=== PATIENT | male | born 2000 | race Hispanic/Latino ===

== ENCOUNTER → 2019-02-08 | Day surgery (SDC) | payer BC ==
[~2019-02-08] MED LIST: DEXILANT60 MG PO; FENTANYL CITRATE/PF 100MCG/2 ML INJ ONE; HYDROXYZINE HCL25 MG PO; HYOSCYAMINE 0.125 MG TAB ONE; KLONOPIN1 MG PO; LIDOCAINE HCL 2% LOCAL INJ 5 ML SDV VIAL INJ ONE; MIDAZOLAM HCL 2 MG/2 ML VIAL ONE; MIRTAZAPINE15 MG PO; PROPOFOL IV EMULSION 10 MG/ML 20 ML VIAL ONE; TERBINAFINE HC250 MG PO; ZOFRAN8 MG PO
--- OUTSIDE RECORDS SUMMARY | 2019-02-08 09:31 | XMS REPORT ---
[facility] Address Unknown Phone Unavailable Care Team Providers Care Senior Game Developer Name Role Phone Unavailable Unavailable Problems This patient has no known problems. Allergies, Adverse Reactions, Alerts This patient has no known allergies or adverse reactions. Medications This patient has no known medications. Encounters Start Date/Time End Date/Time Encounter Type Admission Type Attending [facility] Facility Care Department Encounter ID 2018-06-22 14:53:03 2018-06-22 14:53:03 Outpatient [facility] [id number] 2018-05-27 00:00:00 2018-05-27 00:00:00 Outpatient [facility] [id number] 2018-05-14 00:00:00 2018-05-14 00:00:00 Outpatient [facility] [id number] 2018-05-12 18:27:04 2018-05-12 18:27:04 Outpatient [facility] [id number] 2018-04-13 15:03:46 2018-04-13 15:03:46 Outpatient [facility] [id number] 2018-04-06 09:17:18 2018-04-06 09:17:18 Outpatient [facility] [id number] 2018-03-30 10:20:27 2018-03-30 10:20:27 Outpatient [facility] [id number] 2018-03-17 18:49:38 2018-03-17 18:49:38 Emergency [facility] [id number] 2018-03-09 09:21:28 2018-03-09 09:21:28 Outpatient [facility] [id number] 2018-03-04 15:06:34 2018-03-04 15:06:34 Outpatient [facility] [id number] 2018-03-02 00:00:00 2018-03-02 00:00:00 Outpatient [facility] [id number] 2018-03-01 00:00:00 2018-03-01 00:00:00 Outpatient [facility] [id number] 2018-02-22 00:00:00 2018-02-22 00:00:00 Outpatient [facility] [id number] 2018-02-10 09:09:32 2018-02-10 09:09:32 Outpatient [facility] [id number] 2018-02-10 00:00:00 2018-02-10 00:00:00 Outpatient [facility] [id number] 2018-02-08 00:00:00 2018-02-08 00:00:00 Outpatient [facility] [id number] 2018-02-03 00:00:00 2018-02-03 00:00:00 Outpatient [facility] [id number] 2018-02-02 09:08:43 2018-02-02 09:08:43 Outpatient [facility] [id number] 2018-02-02 08:40:14 2018-02-02 08:40:14 Outpatient [facility] [id number] 2018-02-01 07:17:56 2018-02-01 07:17:56 Outpatient [facility] [id number] 2018-02-01 00:00:00 2018-02-01 00:00:00 Outpatient [facility] [id number] 2018-01-28 11:10:52 2018-01-28 11:10:52 Outpatient [facility] [id number] 2018-01-19 09:53:36 2018-01-19 09:53:36 Outpatient [facility] [id number] 2018-01-19 08:56:24 2018-01-19 08:56:24 Outpatient [facility] [id number] 2018-01-04 00:00:00 2018-01-04 00:00:00 Outpatient [facility] [id number] 2017-11-30 11:40:53 2017-11-30 11:40:53 Outpatient [facility] [id number] 2017-11-25 13:26:20 2017-11-25 13:26:20 Outpatient [facility] [id number] 2017-11-06 00:00:00 2017-11-06 00:00:00 Outpatient [facility] [id number] 2017-10-22 15:03:47 2017-10-22 15:03:47 Outpatient [facility] [id number] 2017-10-22 09:13:54 2017-10-22 09:13:54 Outpatient [facility] [id number] 2017-10-22 00:00:00 2017-10-22 00:00:00 Outpatient [facility] [id number] 2017-10-20 00:00:00 2017-10-20 00:00:00 Outpatient [facility] [id number] 2017-10-14 14:27:06 2017-10-14 14:27:06 Outpatient [facility] [id number] 2017-09-14 10:59:48 2017-09-14 10:59:48 Outpatient [facility] [id number] 2017-09-11 07:15:52 2017-09-11 07:15:52 Outpatient [facility] [id number] 2017-09-04 07:59:08 2017-09-04 07:59:08 Emergency [facility] [id number] 2017-08-26 08:40:50 2017-08-26 08:40:50 Outpatient [facility] [id number] 2017-08-24 00:00:00 2017-08-24 00:00:00 Outpatient [facility] [id number] 2017-08-19 09:00:43 2017-08-19 09:00:43 Emergency [facility] [id number] 2017-08-19 05:32:12 2017-08-19 05:32:12 Emergency [facility] [id number] 2017-08-14 07:47:59 2017-08-14 07:47:59 Emergency [facility] [id number] 2017-08-12 00:00:00 2017-08-12 00:00:00 Outpatient [facility] [id number] 2017-08-10 11:23:57 2017-08-10 11:23:57 Outpatient [facility] [id number] 2017-08-10 11:01:38 2017-08-10 11:01:38 Outpatient [facility] [id number] 2017-08-10 10:04:31 2017-08-10 10:04:31 Outpatient [facility] [id number] 2017-08-04 22:51:58 2017-08-04 22:51:58 Emergency [facility] [id number]
[2019-02-08 13:16] VITALS: BP 123/82
[2019-02-08 13:59] LABS: WBC,FECAL (FECAL LACTOFERRIN) NEGATIVE (NEGATIVE)
--- NOTE | 2019-02-08 14:26 | Operative Report ---
DATE OF PROCEDURE: 02/08/2019 SURGEON: Brian Govea MD PROCEDURE: EGD with esophageal dilatation and biopsies and pyloric channel dilatation per TTS balloon dilators and colonoscopy with biopsies. INDICATIONS FOR EGD: Dysphagia, nausea. INDICATIONS FOR COLONOSCOPY: History of bright red blood per rectum, history of intermittent diarrhea. MEDICATIONS: The patient was done under MAC, please see anesthesiologist's note. PROCEDURE IN DETAIL: With the patient in the left lateral decubitus position, flexible fiberoptic Olympus gastroscope was introduced into the esophagus under direct visualization without any difficulty. There was some patchy erythema noted in distal esophagus. A mild stricture was noted at the GE junction, it was dilated to size 52-Macanese Villegas. The scope was then advanced with ease into the stomach and mucosa overlying the antrum and the body revealed some patchy erythema and [id number] edema and biopsies were obtained and sent to stain for H. pylori. The pylorus was strictured and it was dilated to size 20 mm per TTS balloon dilators. The scope was then advanced with ease to the second portion of the duodenum. Biopsies were obtained from the second portion and duodenal bulb to rule out sprue. The scope was then withdrawn back into the stomach and retroflexed, mucosa overlying the fundus and cardia appeared to be within normal limits. The scope was then straightened out. The scope was subsequently withdrawn. The patient tolerated the procedure well. IMPRESSION: 1. Distal esophagitis, mild. 2. Esophageal stricture at GE junction, dilated to size 52-Macanese Villegas. 3. Gastritis, biopsied, biopsies sent to stain for H. pylori. 4. Pyloric channel stricture dilated to size 20 mm per TTS balloon dilators. 5. Rule out sprue. PLAN: Follow up histology. Continue Dexilant 60 mg one p.o. q.a.m. a.c. Add Carafate 1 g p.o. a.c. t.i.d. and at bedtime. PROCEDURE IN DETAIL: The patient was then turned around after adequate lubrication of the anal canal, a flexible fiberoptic Olympus colonoscope was inserted into the rectum with ease and advanced all the way to the cecum. Mucosa overlying the cecum appeared to be within normal limits. The ileocecal valve was intubated and the scope was advanced into the terminal ileum. Biopsies were obtained. The scope was then withdrawn back into the colon, it was then withdrawn slowly. Mucosa overlying the ascending and the transverse appeared to be within normal limits. Some patchy areas of erythema and low-grade to moderate edema was noted in the left colon as well as in the rectum and random biopsies were obtained. The scope was then retroflexed into the distal rectum. Small internal hemorrhoids were noted, none of which was actively bleeding. The scope was then straightened out, it was subsequently withdrawn after securing an adequate stool specimen, that was sent for the appropriate stool studies. The patient tolerated the procedure well. IMPRESSION: 1. Mild patchy left-sided colitis. 2. Proctitis, mild. 3. Internal hemorrhoids, none actively bleeding. PLAN: 1. Follow up histology. 2. Follow up stool studies. 3. Initiate Bentyl 10 mg one p.o. t.i.d. Brian Govea MD [facility] [place] /[id number] cc: Marcello Lopez DO
[2019-02-09 14:34] LABS: C DIFFICILE TOXIN A&B AMP PROB NEGATIVE (NEGATIVE)
== END | disposition home or self-care (01) ==
LOC: OR 09:17
PROVIDERS: ATTEND Internal Medicine Gastroenterology
DX: K29.50 Unspecified chronic gastritis without bleeding (principal); K31.1 Adult hypertrophic pyloric stenosis; R13.10 Dysphagia, unspecified; R11.0 Nausea; R19.7 Diarrhea, unspecified; K92.1 Melena; K51.50 Left sided colitis without complications; K62.89 Other specified diseases of anus and rectum; K64.8 Other hemorrhoids; K59.09 Other constipation; R03.0 Elevated blood-pressure reading, without diagnosis of hypertension; Z88.0 Allergy status to penicillin
CPT/HCPCS: 43233; 43239; 43245; 43450; 45380; 83630; 83993; 87045; 87177; 87328; 87493; J2001; J2250; J3010

== ENCOUNTER → 2021-12-26 | Day surgery (SDC) | payer BC ==
[~2021-12-26] MED LIST changes: +CARAFATE1 GM PO; -HYOSCYAMINE 0.125 MG TAB ONE; -LIDOCAINE HCL 2% LOCAL INJ 5 ML SDV VIAL INJ ONE
[2021-12-26 11:36] VITALS: BP 122/84
== END | disposition home or self-care (01) ==
LOC: OR 08:31
PROVIDERS: ATTEND Internal Medicine Gastroenterology
DX: K29.50 Unspecified chronic gastritis without bleeding (principal); K31.7 Polyp of stomach and duodenum; K20.90 Esophagitis, unspecified without bleeding; K21.9 Gastro-esophageal reflux disease without esophagitis; R19.7 Diarrhea, unspecified; F41.9 Anxiety disorder, unspecified; F32.A Depression, unspecified; Z88.0 Allergy status to penicillin; Z01.812 Encounter for preprocedural laboratory examination; Z20.822 Contact with and (suspected) exposure to COVID-19; Z79.899 Other long term (current) drug therapy; Z68.31 Body mass index [BMI] 31.0-31.9, adult
CPT/HCPCS: 43239; C9113; J2250; J2704; J3010; U0002

== ENCOUNTER → 2022-02-20 | Outpatient (CLI) | payer BC ==
[~2022-02-20] MED LIST changes: -FENTANYL CITRATE/PF 100MCG/2 ML INJ ONE; -MIDAZOLAM HCL 2 MG/2 ML VIAL ONE; -PROPOFOL IV EMULSION 10 MG/ML 20 ML VIAL ONE
== END ==
LOC: US 07:33
PROVIDERS: ATTEND Internal Medicine Gastroenterology
DX: R10.10 Upper abdominal pain, unspecified (principal)
CPT/HCPCS: 76705; 78227; A9537